=== PATIENT | female | born 1950 | race Caucasian/White ===

== ENCOUNTER → 2016-12-29 08:09 | Outpatient (CLI) | payer MEDICARE, OTHER | END | disposition home or self-care (01) | LOC: D.CN 08:09 | DX: R51 Headache (principal); G56.22 Lesion of ulnar nerve, left upper limb; I10 Essential (primary) hypertension ==

== ENCOUNTER → 2017-01-16 08:36 | Outpatient (CLI) | payer MEDICARE, OTHER | END | disposition home or self-care (01) | LOC: D.MRI 08:36 | DX: R51 Headache (principal); I10 Essential (primary) hypertension; R53.1 Weakness ==

== ENCOUNTER → 2017-04-19 18:42 | Outpatient (CLI) | payer MEDICARE, OTHER | END | disposition home or self-care (01) | LOC: D.MAMMO 04-13 08:45 | DX: Z12.31 Encounter for screening mammogram for malignant neoplasm of breast (principal) ==

== ENCOUNTER → 2017-05-15 12:36 | Outpatient (CLI) | payer MEDICARE, OTHER | END | disposition home or self-care (01) | LOC: D.MAMMO 10:30 | DX: R92.8 Other abnormal and inconclusive findings on diagnostic imaging of breast (principal) ==

== ENCOUNTER → 2017-09-26 16:28 | Outpatient (CLI) | payer MEDICARE, OTHER | END | disposition home or self-care (01) | LOC: D.MAMMO 09-24 08:30 | DX: R92.1 Mammographic calcification found on diagnostic imaging of breast (principal) ==

== ENCOUNTER 2018-04-22 19:00 | Outpatient (CLI) | payer MEDICARE, OTHER | END 2018-04-22 23:59 | disposition home or self-care (01) | LOC: D.MAMMO 19:00 | DX: R92.0 Mammographic microcalcification found on diagnostic imaging of breast (principal) ==

== ENCOUNTER 2019-07-09 08:40 | Day surgery (SDC) | payer MEDICARE, OTHER ==
[2019-07-08 14:32] LABS: HEMATOCRIT 42.2 % (36.0-48.0); HEMOGLOBIN 13.7 g/dL (12-16); MCH 29.4 pg (26.0-34.0); MCHC 32.5 g/dL (31.0-37.0); MCV 90.6 fL (80.0-100.0); MEAN PLATELET VOLUME 11.9 fL (7.4-10.4); RBC 4.66 10x6/uL (4.00-5.40); RDW 13.1 % (11.5-14.5); WBC 7.4 10x3/uL (4.8-10.8)
[2019-07-08 15:06] LABS: CALC OSMOLALITY 280 mosm/kg (275-300); CALCIUM 9.2 mg/dL (8.5-10.1); CARBON DIOXIDE 33.5 mmol/L (21.0-32.0); CHLORIDE - SERUM 103 mmol/L (98-107); CREATININE - SERUM 0.6 mg/dL (0.6-1.3); GLUCOSE 92 mg/dL (74-106); POTASSIUM - SERUM 3.4 mmol/L (3.5-5.1); SODIUM 141 mmol/L (136-145); UREA NITROGEN 13 mg/dL (7-18); eGFR NON AFRICAN AMERICAN > 90 mL/min (90-120)
[~2019-07-09] VITALS: Ht 152.4 cm; Wt 88.9 kg
--- NOTE | ~2019-07-09 | OP ---
PATIENT NAME: JOSH ROBLES MEDICAL RECORD: [id number] :52 LOCATION:D.OPS ADMISSION DATE: SURGEON: YESENIA WANG DPM DATE OF OPERATION: 07/09/2019 PREOPERATIVE DIAGNOSES: 1. Hallux abducto valgus, right foot. 2. Plantar plate rupture, right second metatarsophalangeal joint. POSTOPERATIVE DIAGNOSES: 1. Hallux abducto valgus, right foot. 2. Plantar plate rupture, right second metatarsophalangeal joint. PROCEDURES: 1. Robin bunionectomy, right foot. 2. Destiny osteotomy, right second metatarsal. 3. Plantar plate repair, right second MPJ. ANESTHESIA: General with local infiltrate utilizing a 1:1 mix of lidocaine and Marcaine plain, 20 cc around the first and second ray of the right foot. HEMOSTASIS: Right thigh tourniquet at 350 mmHg. PREOPERATIVE DETAILS: The patient was taken to the OR and placed on the operating table in a supine position. This was followed by induction of general anesthesia and infiltration of local anesthetic. The right extremity was then prepped and draped in the usual aseptic technique followed by exsanguination and inflation of tourniquet. PROCEDURE #1: Robin bunionectomy, right foot. A 15 blade was used to create a 3-4 cm linear incision over the dorsal aspect of the first MPJ of the right foot. The incision was deepened down through subcutaneous tissue to the first MPJ. The inverted L capsulotomy was performed. The medial capsular flap was reflected and the head of the first metatarsal was delivered. A sagittal saw was used to resect the medial eminence. Attention was then directed to the first interspace where a lateral release was performed. A sagittal saw was then used to create a V-osteotomy through and through. The capital fragment was translocated laterally and fixated with a 0.062 inch K-wire. The medial redundant shelf was resected. The pin was cut. The wound was flushed. The capsule was repaired with 2-0 Vicryl, the subcutaneous tissue with 4-0 Rapide and the skin was closed with 4-0 Rapide in a subcuticular technique followed by Dermabond. PROCEDURE #2: Destiny osteotomy, right second metatarsal. A 15-blade was used to create a curvilinear incision from the middle of the second metatarsal to the PIPJ of the right second digit. The incision was deepened down through subcutaneous tissue. Dissection was carried down to the extensor longus tendon, which was split in a Z fashion giving access to the second MPJ. A linear capsulotomy was performed and the second metatarsal head was delivered. A McGlamry scoop elevator was used to free the plantar structures. A sagittal saw was then used to create a Destiny osteotomy from dorsal distal to plantar proximal. The capital fragment was translocated proximally and temporarily fixated with a 0.062 inch K-wire. PROCEDURE #3: Plantar plate repair, right second MPJ. Upon inspection, there OPERATIVE REPORT [id number] JOSH ROBLES D was noted to be some weakening of the plantar plate. At this time, a 15-blade was used to free the plantar plate from the base of the proximal phalanx. A scorpion passer was used to pass FiberWire through the plantar plate, 2 small drill holes were made in the base of the proximal phalanx and the FiberWire was passed up through the drill holes. At this time, the Destiny osteotomy was fixated with 2 pop-off screws and the digit was held in a neutral position while the FiberWire was secured with surgeon's knots. Excellent rigidity or at least normal range of motion of the second MPJ was noted without laxity of the plantar plate upon repair. The wound was flushed. The capsule was then repaired with 2-0 Vicryl, the extensor longus tendon was repaired with 4-0 Rapide, the subcutaneous tissue was reapproximated with 4-0 Rapide and the skin was closed with 4-0 Rapide in a subcuticular technique followed by Dermabond. Adaptic, 4 x 4 and Conform were used to dress the wound followed by application of modified Tompkins compression dressing. The tourniquet was deflated. POSTOPERATIVE DETAILS: The patient tolerated the procedure well and left the OR with vital signs stable and vascular status at preoperative levels. The patient was transported to recovery per anesthesia in stable condition. 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 07/09/19 [facility] [address] [place] [address]
[~2019-07-09 08:40] MED LIST: LISINOPRIL-HCT1 EAC8 PO; MULTI-DAY VITAM1 TAB PO
[2019-07-09 09:08] VITALS: BP 124/55; Ht 152.4 cm; Wt 88.9 kg
--- NOTE | 2019-07-09 13:40 | NUR ---
DC INSTRUCTIONS GIVEN TO PT BY PHOENIX WING RN. PT STATES UNDERSTANDING. DC'D IV CATH FULLY INTACT BY PHOENIX WING RN.
--- NOTE | 2019-07-09 14:48 | NUR ---
1410 IV REMOVED PRESSURE HELD AND DRESSING APPLIED.
== END 2019-07-09 14:45 | disposition home or self-care (01) ==
LOC: D.OPS 08:40 → D.PAN 11:00 → D.OPS 14:30
PROVIDERS: Anesthesiology; ATTEND Podiatrist
DX: M20.11 Hallux valgus (acquired), right foot (principal); S93.621A Sprain of tarsometatarsal ligament of right foot, initial encounter; X58.XXXA Exposure to other specified factors, initial encounter

== ENCOUNTER 2019-09-02 19:00 | Outpatient (CLI) | payer MEDICARE, OTHER ==
[2019-07-09 09:08] VITALS: BMI 38.3
== END 2019-09-02 23:59 | disposition home or self-care (01) ==
LOC: D.MAMMO 19:00
PROVIDERS: ATTEND Nurse Practitioner
DX: Z12.31 Encounter for screening mammogram for malignant neoplasm of breast (principal)

== ENCOUNTER 2020-11-19 14:30 | Outpatient (CLI) | payer MEDICARE, OTHER ==
[2019-07-09 09:08] VITALS: BMI 38.3
== END 2020-11-19 23:59 | disposition home or self-care (01) ==
LOC: D.MAMMO 14:30
PROVIDERS: ATTEND Emergency Medicine
DX: Z12.31 Encounter for screening mammogram for malignant neoplasm of breast (principal)

== ENCOUNTER → 2020-11-25 15:11 | Outpatient (CLI) | payer MEDICARE, OTHER ==
[2019-07-09 09:08] VITALS: BMI 38.3
== END | disposition home or self-care (01) ==
LOC: D.US 15:11
PROVIDERS: ATTEND Emergency Medicine
DX: R92.8 Other abnormal and inconclusive findings on diagnostic imaging of breast (principal)

== ENCOUNTER → 2020-12-28 10:56 | Outpatient (CLI) | payer MEDICARE, OTHER ==
[2019-07-09 09:08] VITALS: BMI 38.3
== END | disposition home or self-care (01) ==
LOC: D.US 10:56
PROVIDERS: ATTEND Nurse Practitioner
DX: R92.8 Other abnormal and inconclusive findings on diagnostic imaging of breast (principal)

== ENCOUNTER → 2020-12-30 22:27 | Outpatient (CLI) | payer MEDICARE, OTHER ==
[2019-07-09 09:08] VITALS: BMI 38.3
== END | disposition home or self-care (01) ==
LOC: D.MAMMO 12-09 08:00
PROVIDERS: ATTEND Emergency Medicine
DX: R92.8 Other abnormal and inconclusive findings on diagnostic imaging of breast (principal)